=== PATIENT | male | born 1960 | race Hispanic/Latino ===

== ENCOUNTER 2017-11-02 07:27 | Day surgery (SDC) | payer MEDICARE ==
[~2017-11-02] VITALS: Ht 160 cm; Wt 76.3 kg
[~2017-11-02 07:27] MED LIST: CALC-866 PO; CALC667T5 PO; CARV6.25 PO; CLOP75TA32 PO; FOLI1TAB85 PO; HYDR-4153 PO; INSLAN SQ; INSU200I SQ; ISOS20TA7 PO; NITR0.4T50 SL; PRAV20TA4 PO; SODIUM CHLORIDE 0.9% 1000ML 1,000 ML IV ONE; VITAMIN B12 PO
[2017-11-02 07:49] VITALS: BP 135/62
[2017-11-02] MEDS ORDERED: PROPOFOL 10 MG/ML 20ML VIAL IV ONE (08:43)
== END 2017-11-02 09:50 | disposition home or self-care (01) ==
LOC: DAH 07:27
PROVIDERS: ATTEND Internal Medicine Gastroenterology
DX: Z12.11 Encounter for screening for malignant neoplasm of colon (principal); D12.3 Benign neoplasm of transverse colon; D12.2 Benign neoplasm of ascending colon; D12.8 Benign neoplasm of rectum; E78.4 Other hyperlipidemia; E78.5 Hyperlipidemia, unspecified; E11.9 Type 2 diabetes mellitus without complications; M19.90 Unspecified osteoarthritis, unspecified site; N19 Unspecified kidney failure; I10 Essential (primary) hypertension; I25.10 Atherosclerotic heart disease of native coronary artery without angina pectoris; Z95.1 Presence of aortocoronary bypass graft; Z79.4 Long term (current) use of insulin; Z79.899 Other long term (current) drug therapy
CPT/HCPCS: 45385; 45380; 82948 ×2; 88305; A4606; J2704; J7030